=== PATIENT | female | born 1965 | race Caucasian/White ===

== ENCOUNTER → 2016-05-13 | Outpatient (CLI) | payer BC ==
[~2016-05-13] MED LIST: ACET-1256 PO; ASPI-321 OR; ASPI-461 PO; CALCTAB7 PO; DICY20TA35 PO; DOCU100C PO; ECHI400C11; EST1 PO; ESTR1TAB2 PO; FEXO1TAB58 PO; FEXO5TAB2 PO; GLUC10007 PO; MULT-506 PO; STLS PO; zinc
--- NOTE | 2016-05-13 13:40 | DIAGNOSTIC IMAGING REPORT ---
LEFT MIDDLE FINGER 3 VIEWS HISTORY: SKIN CYST LEFT 3RD FINGER COMPARISON: None. FINDINGS: There is no fracture or dislocation. Focal soft tissue thickening/swelling dorsal to the DIP joint which measures 6 mm. No underlying bony erosions. No radiopaque foreign bodies. IMPRESSION: Focal soft tissue thickening/swelling dorsal to the DIP joint which measures 6 mm. No underlying bony erosions. Electronically signed by: Westley Bernard M.D. 05/13/2016 1:39 PM Dictated Date/Time: 05/13/2016 1:38 PM
== END | disposition home or self-care (01) ==
LOC: C.RDSM 12:53
PROVIDERS: ATTEND Internal Medicine
DX: L72.9 Follicular cyst of the skin and subcutaneous tissue, unspecified (principal)

== ENCOUNTER → 2016-06-20 | Outpatient (CLI) | payer BC ==
[~2016-06-20] MED LIST changes: +GADAVIST IV PRN
--- NOTE | 2016-06-20 09:43 | DIAGNOSTIC IMAGING REPORT ---
MRI OF THE BRAIN WITHOUT AND WITH IV CONTRAST CLINICAL HISTORY: Abnormal MRI the brain. Follow-up study. POSSIBLE DEMYELINATION. LEFT ORBITAL/FRONTAL PAIN WITH LIGHT SENSITIVITY COMPARISON STUDY: 05/20/2015 TECHNIQUE: MRI of the brain was performed from the vertex to the skull base utilizing various T1 and T2 weighted sequences. Following the IV administration of 8 mL of Gadavist contrast, additional enhanced images were obtained. FINDINGS: Sagittal T1, axial diffusion, proton density and T2 weighted axial, coronal FLAIR, and pre and post axial T1-weighted images were acquired. These were supplemented with post gadolinium coronal T1 weighted images. The patient was imaged under 0.7 Rina open MRI scanner No intra or extra-axial mass lesions are visualized. Axial diffusion-weighted images reveal no evidence of acute or subacute infarction. There is no evidence of ventricular dilatation. Proton density T2-weighted and FLAIR images reveal scattered foci of increased T2 signal within the white matter, similar to the preceding study. There are no abnormal flow voids. There is no evidence of pathologic enhancement. IMPRESSION: 1. No significant change from the preceding study 2. No evidence of acute or subacute infarction 3. No evidence of intracranial mass 4. Stable nonspecific scattered foci of increased T2 signal within the white matter Electronically signed by: Marcus Mcclendon M.D. 06/20/2016 9:42 AM Dictated Date/Time: 06/20/2016 9:37 AM
== END | disposition home or self-care (01) ==
LOC: C.OPENMRI 08:13
PROVIDERS: ATTEND Psychiatry & Neurology Neurology
DX: R93.0 Abnormal findings on diagnostic imaging of skull and head, not elsewhere classified (principal)

== ENCOUNTER 2016-07-28 13:59 | Emergency (ER) | payer BC ==
[~2016-07-28] VITALS: Ht 170.2 cm; Wt 80.0 kg
[~2016-07-28 13:59] MED LIST changes: -ACET-1256 PO; -ASPI-461 PO; -DICY20TA35 PO; -DOCU100C PO; -ESTR1TAB2 PO; -FEXO1TAB58 PO; -GADAVIST IV PRN; -MULT-506 PO
[2016-07-28 14:04] VITALS: TEMP 36.9; Ht 170.2 cm; Wt 80.0 kg
[2016-07-28] MEDS ORDERED: SODIUM CHLORIDE 0.9% 1000ML 1,000 ML IV STA (14:47)
[2016-07-28] MEDS ORDERED: OPTIRAY 320 IV PRN (15:00)
[2016-07-28 15:14] LABS: BASO % 0.8 %; BASO ABS # 0.07 K/uL (0-0.2); COMPLETE YES; EOS % 3.6 %; HEMATOCRIT 41.4 % (37-47); IG% 0.2 %; LYMPH % 29.1 %; LYMPH ABS # 2.59 K/uL (1.2-3.4); MEAN CELL VOLUME 96.5 fL (80-100); MEAN CORPUSCULAR HEMOGLOBIN 33.6 pg (25-34); MEAN CORPUSCULAR HGB CONC 34.8 g/dl (32-36); MEAN PLATELET VOLUME 10.1 fL (7.4-10.4); NEUT % 59.3 %; PLATELET COUNT 316 K/uL (130-400); RED BLOOD COUNT 4.29 M/uL (4.2-5.4)
[2016-07-28] MEDS ORDERED: ACET-1256 PO (15:15)
[2016-07-28] MEDS ORDERED: ASPI-461 PO (15:15)
[2016-07-28] MEDS ORDERED: FEXO1TAB58 PO (15:15)
[2016-07-28] MEDS ORDERED: ESTR1TAB2 PO (15:15)
[2016-07-28] MEDS ORDERED: DOCU100C PO (15:15)
[2016-07-28 15:39] LABS: BUN/CREATININE RATIO 15.6 (10-20); CALCIUM 9.1 mg/dl (8.5-10.1); CREATININE 0.88 mg/dl (0.60-1.20); POTASSIUM 4.1 mmol/L (3.5-5.1)
[2016-07-28 15:40] LABS: URINE APPEARANCE CLEAR (CLEAR); URINE BILIRUBIN NEG (NEG); URINE COLOR YELLOW; URINE EPITHELIAL CELL AUTO 0-5 /lpf (0-5); URINE NITRITE NEG (NEG); URINE PH 7.5 (4.5-7.5); UROBILINOGEN NEG (NEG); ZZUR CULT IF INDIC CLEAN CATCH NO
[2016-07-28 15:44] LABS: MANUAL MICROSCOPIC REQUIRED? NO; REVIEW REQ? NO
[2016-07-28] MEDS ORDERED: KETOROLAC TROMETHAMINE 30 MG/ML VIAL IV STA (16:35)
--- NOTE | 2016-07-28 17:45 | DIAGNOSTIC IMAGING REPORT ---
CT OF THE ABDOMEN AND PELVIS WITH CONTRAST CLINICAL HISTORY: Lower abdominal pain. COMPARISON STUDY: CT of the abdomen and pelvis February 28, 2014. TECHNIQUE: Following IV administration of 93 mL of Optiray-320, axial images of the abdomen and pelvis were obtained from the lung bases to the proximal femurs. Images were reviewed in the axial, sagittal, and coronal planes. IV contrast was administered without complication. CT DOSE: 812.96 mGycm FINDINGS: The liver, spleen, adrenal glands, kidneys and pancreas are normal. There is no biliary ductal dilatation status post cholecystectomy. There is no peripancreatic infiltration. No hydronephrosis is present. The caliber and wall thickness of small and large bowel are normal. The appendix is not visualized. There is no lymphadenopathy or ascites. Scattered colonic diverticula are present without evidence for acute diverticulitis. IMPRESSION: No acute process within the abdomen or pelvis. Electronically signed by: Emile Estrada M.D. 07/28/2016 5:43 PM Dictated Date/Time: 07/28/2016 5:41 PM
[2016-07-28] MEDS ORDERED: DICYCLOMINE HCL 20 MG TAB PO STA (18:14)
--- NOTE | 2016-07-28 18:20 | EMERGENCY ROOM VISIT NOTE ---
History Report prepared by Ying: Izzy Hair Under the Supervision of: Dr. Patricia Poe D.O. First contact with patient: 14:29 Chief Complaint: ABDOMINAL PAIN Stated Complaint: ABD PAIN Nursing Triage Summary: pt to the ED with c/o lower abd pain since monday no v/d no urinary complaints no vag bleeding or dc History of Present Illness The patient is a 50 year old female who presents to the Emergency Room with complaints of worsening abdominal pain starting 6 days ago. The pain is constant and present below her belly button and across the abdomen. She was constipated and nauseous and was not eating much. She also reports that she had a headache. Her bowel movement 4 days ago seemed darker than normal. She was able to eat more normally after then but the next day the abdominal pain worsened. The pain is worse when she walks or lies flat. She does feel bloated at times. She is having smaller bowel movements. She presented to the ED today after she had 3-4 loose bowel movements today. She reports that they are a normal color. She usually only has one bowel movement a day. She reports that she feels colder than usual. She denies any fever, urinary symptoms or back pain. She denies any recent dietary changes, medication changes, travel, or sick contacts. She had a colonoscopy in 2012 which was negative for diverticulitis and polyps. She has had a hysterectomy, appendectomy, and cholecystectomy. Source of History: patient Onset: 6 days ago Position: abdomen Quality: other (pain) Timing: worsening Associated Symptoms: + diarrhea, + headache, + nausea, No back pain, No fevers, No urinary symptoms Note: Pt reports constipation. Review of Systems See HPI for pertinent positives & negatives. A total of 10 systems reviewed and were otherwise negative. Past Medical & Surgical Medical Problems: (1) History of headache Surgical Problems: (1) S/P appendectomy (2) S/P cholecystectomy (3) S/P complete hysterectomy (4) S/P tonsillectomy Family History FHx: cancer Heart disease Hypertension Kidney stones Social History Smoking Status: Never Smoker Alcohol Use: none Marital Status: single Housing Status: lives alone Occupation Status: employed Current/Historical Medications Scheduled Acetaminophen (Tylenol), 1,000 MG PO PRN UD Aspirin (Aspirin), 81 MG PO DAILY Calcium Carbonate-Vitamin D W/ (Caltrate 600 Plus), 1 TAB PO BID Docusate Sodium (Stool Softener), 100 MG PO BID Echinacea (Echinacea), 1 CAP BID Estradiol (Estrace), 2 MG PO DAILY Glucosamine Sulfate (Glucosamine), 1,000 MG PO BID Multivitamin (Multivitamin), 1 TAB PO DAILY [zinc], 50 MG DAILY Scheduled PRN Dicyclomine Hcl (Bentyl), 20 MG PO Q8 PRN for abdominal cramp Fexofenadine-Pseudoephedrine (Elaina-D 24 Hour Allergy), 1 TAB PO DAILY PRN for ALLERGIC REACTION Allergies Coded Allergies: Chlorhexidine (Unverified Allergy, Mild, RASH, 12/04/15) Isopropyl Alcohol (Unverified Allergy, Mild, RASH, 12/04/15) Physical Exam Vital Signs Date Time Temp Pulse Resp B/P Pulse Ox O2 Delivery O2 Flow Rate FiO2 07/28/16 18:40 78 18 130/67 99 07/28/16 17:12 79 16 128/66 100 Room Air 07/28/16 15:22 79 18 136/84 100 Room Air 07/28/16 14:04 36.9 81 16 131/76 100 Physical Exam GENERAL: alert, well appearing, well nourished, no distress, non-toxic EYE EXAM: normal conjunctiva, PERRL and EOM's grossly intact OROPHARYNX: no exudate, no erythema, lips, buccal mucosa, and tongue normal and mucous membranes are moist NECK: supple, no nuchal rigidity, no adenopathy, non-tender LUNGS: Clear to auscultation. Normal chest wall mechanics HEART: no murmurs, S1 normal and S2 normal ABDOMEN: abdomen soft, lower abdominal tenderness, normo-active bowel sounds, no masses, no rebound or guarding. BACK: Back is symmetrical on inspection and there is no deformity, no midline tenderness, no CVA tenderness. SKIN: no rashes and no bruising UPPER EXTREMITIES: upper extremities are grossly normal. LOWER EXTREMITIES: No pitting edema. NEURO EXAM: Normal sensorium, cranial nerves II-XII grossly intact, normal speech, no gross weakness of arms, no gross weakness of legs. Medical Decision & Procedures ER Provider Diagnostic Interpretation: Radiology results have been interpreted by the radiologist and reviewed by me. CT OF THE ABDOMEN AND PELVIS WITH CONTRAST CLINICAL HISTORY: Lower abdominal pain. COMPARISON STUDY: CT of the abdomen and pelvis February 28, 2014. TECHNIQUE: Following IV administration of 93 mL of Optiray-320, axial images of the abdomen and pelvis were obtained from the lung bases to the proximal femurs. Images were reviewed in the axial, sagittal, and coronal planes. IV contrast was administered without complication. CT DOSE: 812.96 mGycm FINDINGS: The liver, spleen, adrenal glands, kidneys and pancreas are normal. There is no biliary ductal dilatation status post cholecystectomy. There is no peripancreatic infiltration. No hydronephrosis is present. The caliber and wall thickness of small and large bowel are normal. The appendix is not visualized. There is no lymphadenopathy or ascites. Scattered colonic diverticula are present without evidence for acute diverticulitis. IMPRESSION: No acute process within the abdomen or pelvis. Electronically signed by: Emile Estrada M.D. 07/28/2016 5:43 PM Dictated Date/Time: 07/28/2016 5:41 PM Laboratory Results 07/28/16 15:03 Red Blood Count 4.29, Mean Corpuscular Volume 96.5, Mean Corpuscular Hemoglobin 33.6, Mean Corpuscular Hemoglobin Concent 34.8, Mean Platelet Volume 10.1, Neutrophils (%) (Auto) 59.3, Lymphocytes (%) (Auto) 29.1, Monocytes (%) (Auto) 7.0, Eosinophils (%) (Auto) 3.6, Basophils (%) (Auto) 0.8, Neutrophils # (Auto) 5.28, Lymphocytes # (Auto) 2.59, Monocytes # (Auto) 0.62, Eosinophils # (Auto) 0.32, Basophils # (Auto) 0.07 07/28/16 15:03 Test 07/28/16 13:25 07/28/16 15:03 Urine Color YELLOW Urine Appearance CLEAR (CLEAR) Urine pH 7.5 (4.5-7.5) Urine Specific Howe 1.010 (1.000-1.030) Urine Protein NEG (NEG) Urine Glucose (UA) NEG (NEG) Urine Ketones NEG (NEG) Urine Occult Blood NEG (NEG) Urine Nitrite NEG (NEG) Urine Bilirubin NEG (NEG) Urine Urobilinogen NEG (NEG) Urine Leukocyte Esterase TRACE (NEG) Urine WBC (Auto) 0 /hpf (0-5) Urine RBC (Auto) 0-4 /hpf (0-4) Urine Hyaline Casts (Auto) 0 /lpf (0-5) Urine Epithelial Cells (Auto) 0-5 /lpf (0-5) Urine Bacteria (Auto) NEG (NEG) White Blood Count 8.90 K/uL (4.8-10.8) Red Blood Count 4.29 M/uL (4.2-5.4) Hemoglobin 14.4 g/dL (12.0-16.0) Hematocrit 41.4 % (37-47) Mean Corpuscular Volume 96.5 fL (80-100) Mean Corpuscular Hemoglobin 33.6 pg (25-34) Mean Corpuscular Hemoglobin Concent 34.8 g/dl (32-36) Platelet Count 316 K/uL (130-400) Mean Platelet Volume 10.1 fL (7.4-10.4) Neutrophils (%) (Auto) 59.3 % Lymphocytes (%) (Auto) 29.1 % Monocytes (%) (Auto) 7.0 % Eosinophils (%) (Auto) 3.6 % Basophils (%) (Auto) 0.8 % Neutrophils # (Auto) 5.28 K/uL (1.4-6.5) Lymphocytes # (Auto) 2.59 K/uL (1.2-3.4) Monocytes # (Auto) 0.62 K/uL (0.11-0.59) Eosinophils # (Auto) 0.32 K/uL (0-0.5) Basophils # (Auto) 0.07 K/uL (0-0.2) RDW Standard Deviation 42.2 fL (36.4-46.3) RDW Coefficient of Variation 12.0 % (11.5-14.5) Immature Granulocyte % (Auto) 0.2 % Immature Granulocyte # (Auto) 0.02 K/uL (0.00-0.02) Anion Gap 5.0 mmol/L (3-11) Est Creatinine Clear Calc Drug Dose 84.2 ml/min Estimated GFR () 89.4 Estimated GFR (Non- 77.2 BUN/Creatinine Ratio 15.6 (10-20) Calcium Level 9.1 mg/dl (8.5-10.1) Total Bilirubin 0.4 mg/dl (0.2-1) Aspartate Amino Transf (AST/SGOT) 25 U/L (15-37) Alanine Aminotransferase (ALT/SGPT) 31 U/L (12-78) Alkaline Phosphatase 60 U/L (45-117) Total Protein 7.9 gm/dl (6.4-8.2) Albumin 4.0 gm/dl (3.4-5.0) Globulin 3.9 gm/dl (2.5-4.0) Albumin/Globulin Ratio 1.0 (0.9-2) Lipase 322 U/L (73-393) Laboratory results per my review. Medications Administered Medications (Trade) Dose Ordered Sig/Taylor Route Start Time Stop Time Status Last Admin Dose Admin Sodium Chloride (Nss 1000ml) 1,000 ml @ 250 mls/hr Q4H STAT IV 07/28/16 14:47 07/28/16 18:46 DC 07/28/16 15:24 250 MLS/HR Ketorolac Tromethamine (Toradol Inj) 30 mg NOW STAT IV 07/28/16 16:35 07/28/16 16:36 DC 07/28/16 17:40 30 MG Dicyclomine HCl (Bentyl Tab) 20 mg ONE STAT PO 07/28/16 18:14 07/28/16 18:15 DC 07/28/16 18:14 20 MG ED Course 1437: The patient was evaluated in room A12B. A complete history and physical exam was performed. 1447: NSS 1000 ml @ 250 mls/hr IV. 1635: Toradol Inj 30 mg IV. 1813: Upon reevaluation, the patient is feeling better. I discussed the findings and the treatment plan with the patient. She verbalizes agreement and understanding. She was discharged home. 181: Bentyl Tab 20 mg PO. Medical Decision Differential diagnosis: Etiologies such as appendicitis, diverticulitis, PUD, biliary pathology, UTI, pancreatitis, obstruction, mesenteric ischemia, aortic pathology, infections, inflammatory bowel disease, renal colic, as well as others were entertained. Patient well-appearing here, labs and imaging reassuring. Discussed the patient close follow-up with family doctor, symptoms to watch return for, possible need for additional GI evaluation if symptoms persist, she verbalized understanding all this was agreeable with plan. Impression Primary Impression: Abdominal pain Scribe Attestation The scribe's documentation has been prepared under my direction and personally reviewed by me in its entirety. I confirm that the note above accurately reflects all work, treatment, procedures, and medical decision making performed by me. Departure Information Dispostion Home / Self-Care Prescriptions Dicyclomine Hcl (BENTYL) 20 Mg Tab 20 MG PO Q8 Y for abdominal cramp, #20 TAB Prov: Patricia Poe Sandhya, DO 07/28/16 Referrals Rivka Braxton D.O. (PCP) Forms Call Back Authorization, HOME CARE DOCUMENTATION FORM, IMPORTANT VISIT INFORMATION Patient Instructions My [facility] Additional Instructions Please call and follow-up with your family doctor. If you develop any worsening pain, vomiting, fevers, notice blood with a bowel movement, or you have any other concerns, please return to the emergency room. Problem Qualifiers Primary Impression: Abdominal pain Abdominal location: lower abdomen, unspecified Qualified Codes: R10.30 - Lower abdominal pain, unspecified
[2016-07-28] MEDS ORDERED: DICY20TA35 PO (18:22)
[2016-07-28 18:40] VITALS: BP 130/67; PULSE 78; O2SAT 99
[2016-07-28] MEDS ORDERED: MULT-506 PO (19:50)
== END 2016-07-28 18:49 | disposition home or self-care (01) ==
LOC: C.EDB 14:01 → C.EDA 18:49
DX: R10.9 Unspecified abdominal pain (principal); Z90.710 Acquired absence of both cervix and uterus; Z98.890 Other specified postprocedural states; Z79.82 Long term (current) use of aspirin; Z79.899 Other long term (current) drug therapy; Z88.8 Allergy status to other drugs, medicaments and biological substances; Z80.9 Family history of malignant neoplasm, unspecified; Z82.49 Family history of ischemic heart disease and other diseases of the circulatory system; Z84.1 Family history of disorders of kidney and ureter

== ENCOUNTER → 2016-09-09 | Outpatient (CLI) | payer BC ==
[~2016-09-09] MED LIST changes: +ACET-1256 PO; -ASPI-321 OR; +ASPI-461 PO; +DOCU100C PO; -EST1 PO; +ESTR1TAB2 PO; +FEXO1TAB58 PO; -FEXO5TAB2 PO; +MULT-506 PO; -STLS PO
--- NOTE | 2016-09-09 16:42 | MAMMOGRAPHY REPORT ---
BILATERAL DIGITAL SCREENING MAMMOGRAM TOMOSYNTHESIS WITH CAD: 09/09/2016 CLINICAL HISTORY: Routine screening. Patient has no complaints. TECHNIQUE: Breast tomosynthesis in addition to standard 2D mammography was performed. Current study was also evaluated with a Computer Aided Detection (CAD) system. COMPARISON: Comparison is made to exams dated: 08/12/2015 mammogram, 07/08/2014 mammogram, 08/16/2013 mammogram, 08/21/2012 mammogram, 10/12/2011 mammogram, and 08/27/2010 mammogram - [facility]. BREAST COMPOSITION: There are scattered areas of fibroglandular density in both breasts. FINDINGS: No suspicious masses, calcifications, or areas of architectural distortion are noted in e ither breast. There has been no significant interval change compared to prior exams. Scattered bilat eral benign-appearing calcifications are not significantly changed. IMPRESSION: ACR BI-RADS CATEGORY 2: BENIGN There is no mammographic evidence of malignancy. A 1 year screening mammogram is recommended. The p atient will receive written notification of the results. Approximately 10% of breast cancers are not detected with mammography. A negative mammographic repor t should not delay biopsy if a clinically suggestive mass is present. Isaura Hernandes M.D. ah/:09/09/2016 16:29:10 Database Design Analyst: Radha PATTERSON)(Eladio)(BD), [facility] letter sent: Normal 1/2 BI-RADS Code: ACR BI-RADS Category 2: Benign
== END | disposition home or self-care (01) ==
LOC: C.MAMM 15:20
PROVIDERS: ATTEND Obstetrics & Gynecology
DX: Z12.31 Encounter for screening mammogram for malignant neoplasm of breast (principal)

== ENCOUNTER → 2017-01-24 | Outpatient (CLI) | payer BC ==
--- NOTE | 2017-01-24 16:35 | DIAGNOSTIC IMAGING REPORT ---
CHEST 2 VIEWS ROUTINE CLINICAL HISTORY: COUGH COMPARISON STUDY: 03/23/2012 FINDINGS: The cardiac and mediastinal contours are normal. There is no evidence of focal pulmonary consolidation. There is no evidence of failure. No pleural effusions are visualized.[ IMPRESSION: No active disease in the chest. Electronically signed by: Marcus Mcclendon M.D. 01/24/2017 4:33 PM Dictated Date/Time: 01/24/2017 4:32 PM
== END | disposition home or self-care (01) ==
LOC: C.RAD 16:11
PROVIDERS: ATTEND Family Medicine
DX: R05 Cough (principal)

== ENCOUNTER → 2017-04-07 | Outpatient (CLI) | payer BC ==
[~2017-04-07] MED LIST changes: +OPTIRAY 320 IV PRN
--- NOTE | 2017-04-07 18:25 | DIAGNOSTIC IMAGING REPORT ---
CT OF THE ABDOMEN AND PELVIS WITH CONTRAST CLINICAL HISTORY: Right lower quadrant abdominal pain. COMPARISON STUDY: CT of the abdomen and pelvis July 28, 2016. TECHNIQUE: Following IV administration of 115 mL of Optiray-320, axial images of the abdomen and pelvis were obtained from the lung bases to the proximal femurs. Images were reviewed in the axial, sagittal, and coronal planes. IV contrast was administered without complication. A dose lowering technique was utilized adhering to the principles of ALARA. CT DOSE: 475.60 mGy.cm FINDINGS: There is no biliary ductal dilatation status post cholecystectomy. No hepatic lesions are present. The spleen, adrenal glands, kidneys and pancreas are normal. There is no peripancreatic infiltration or hydronephrosis. The caliber and wall thickness of small and large bowel are normal. The appendix is not visualized and likely surgically absent. There is no ascites or lymphadenopathy within the abdomen or pelvis. There is mild distention of the bladder. Major vasculature of the abdomen and pelvis is patent. No suspicious osseous lesion is identified. There is no abscess. IMPRESSION: No acute process within the abdomen or pelvis. Electronically signed by: Emile Estrada M.D. 04/07/2017 6:23 PM Dictated Date/Time: 04/07/2017 6:19 PM
== END | disposition home or self-care (01) ==
LOC: C.CTS 18:01
PROVIDERS: ATTEND Student in an Organized Health Care Education/Training Program
DX: R10.31 Right lower quadrant pain (principal)

== ENCOUNTER → 2017-09-20 | Outpatient (CLI) | payer OTHER ==
[~2017-09-20] MED LIST changes: -OPTIRAY 320 IV PRN
--- NOTE | 2017-09-21 14:17 | MAMMOGRAPHY REPORT ---
BILATERAL DIGITAL SCREENING MAMMOGRAM TOMOSYNTHESIS WITH CAD: 09/20/2017 CLINICAL HISTORY: Routine screening. Patient has no complaints. TECHNIQUE: Breast tomosynthesis in addition to standard 2D mammography was performed. Current study was also evaluated with a Computer Aided Detection (CAD) system. COMPARISON: Comparison is made to exams dated: 09/09/2016 mammogram, 08/12/2015 mammogram, 08/21/2012 m ammogram, 10/12/2011 mammogram, 08/27/2010 mammogram - [facility], and 06/30/2008. BREAST COMPOSITION: There are scattered areas of fibroglandular density in both breasts. FINDINGS: No suspicious masses, calcifications, or areas of architectural distortion are noted in ei ther breast. There has been no significant interval change compared to prior exams. Scattered bilater al benign-appearing calcifications are not significantly changed. IMPRESSION: ACR BI-RADS CATEGORY 2: BENIGN There is no mammographic evidence of malignancy. A 1 year screening mammogram is recommended. The pa tient will receive written notification of the results. Approximately 10% of breast cancers are not detected with mammography. A negative mammographic report should not delay biopsy if a clinically suggestive mass is present. Isaura Hernandes M.D. /:09/21/2017 07:30:07 Iron Worker Apprentice: Richelle RODAS(Deep)(M), [facility] letter sent: Normal 1/2 BI-RADS Code: ACR BI-RADS Category 2: Benign
== END | disposition home or self-care (01) ==
LOC: C.MAMM 17:32
PROVIDERS: ATTEND Obstetrics & Gynecology
DX: Z12.31 Encounter for screening mammogram for malignant neoplasm of breast (principal)